=== PATIENT | female | born 1940 | race American Indian/Alaskan Native ===

== ENCOUNTER 2018-07-30 15:56 | Emergency (ER) | payer MEDICARE, OTHER ==
[2018-07-30 19:41] LABS: Hematocrit 43.9 % (30.3-42.9); Hemoglobin 14.1 gm/dl (10.1-14.3); Mean Corpuscular HGB Conc 32 % (30-34); Mean Corpuscular Volume 81 fl (79-97); Platelet Count 123 K/mm3 (140-440); Red Blood Count 5.41 M/mm3 (3.65-5.03)
--- NOTE | 2018-07-30 19:47 | Emergency Department Report ---
ED General Adult HPI - General Chief complaint: Abdominal Pain Stated complaint: ABD PAIN Time Seen by Provider: 07/30/18 19:44 Source: patient, EMS Mode of arrival: Stretcher Limitations: No Limitations - History of Present Illness Initial comments: 78-year-old female with a history of end-stage renal disease presents with the complaint of abdominal pain. Patient had abdominal pain8 out of 10 and did not have dialysis today secondary to this. Patient has had no vomiting. Patient and has had no chest pain or shortness of breath. Patient has had no fever. Patient able to have a bowel movement. Severity scale (0 -10): 8 - Related Data Previous Rx's Medication Instructions Recorded Last Taken Type Ondansetron [Zofran Odt] 4 mg PO Q8HR #20 tab.rapdis 07/30/18 Unknown Rx traMADol [Ultram] 50 mg PO Q6HR PRN #20 tablet 07/30/18 Unknown Rx Allergies Allergy/AdvReac Type Severity Reaction Status Date / Time No Known Allergies Allergy Unverified 07/30/18 17:06 ED Review of Systems ROS: Stated complaint: ABD PAIN Other details as noted in HPI Constitutional: denies: chills, fever Eyes: denies: eye pain, eye discharge, vision change ENT: denies: ear pain, throat pain Respiratory: denies: cough, shortness of breath, wheezing Cardiovascular: denies: chest pain, palpitations Endocrine: no symptoms reported Gastrointestinal: abdominal pain, nausea, vomiting Genitourinary: denies: urgency, dysuria, discharge Musculoskeletal: denies: back pain, joint swelling, arthralgia Skin: denies: rash, lesions Neurological: denies: headache, weakness, paresthesias Psychiatric: denies: anxiety, depression Hematological/Lymphatic: denies: easy bleeding, easy bruising ED Past Medical Hx - Past Medical History Previous Medical History?: Yes Hx CVA: Yes (R sided def) Hx Diabetes: Yes Hx Renal Disease: Yes (Tue, Thur, Sat) Hx Seizures: Yes - Social History Smoking Status: Never Smoker Substance Use Type: None - Medications Home Medications: Home Medications Medication Instructions Recorded Confirmed Last Taken Type Ondansetron [Zofran Odt] 4 mg PO Q8HR #20 tab.rapdis 07/30/18 Unknown Rx traMADol [Ultram] 50 mg PO Q6HR PRN #20 tablet 07/30/18 Unknown Rx ED Physical Exam - General Limitations: No Limitations General appearance: alert, other (active; awake; ) - Head Head exam: Present: atraumatic, normocephalic - Eye Eye exam: Present: normal appearance - ENT ENT exam: Present: mucous membranes moist - Neck Neck exam: Present: normal inspection - Respiratory Respiratory exam: Present: normal lung sounds bilaterally. Absent: respiratory distress - Cardiovascular Cardiovascular Exam: Present: regular rate, normal rhythm. Absent: systolic murmur, diastolic murmur, rubs, gallop - GI/Abdominal GI/Abdominal exam: Present: soft, normal bowel sounds. Absent: tenderness (no acute tenderness noted currently), guarding, rebound - Extremities Exam Extremities exam: Present: normal inspection - Back Exam Back exam: Present: normal inspection - Neurological Exam Neurological exam: Present: alert, oriented X3 - Psychiatric Psychiatric exam: Present: normal affect, normal mood - Skin Skin exam: Present: warm, dry, intact, normal color. Absent: rash ED Course Vital Signs 07/30/18 07/30/18 07/30/18 17:48 18:00 18:15 Pulse Rate 70 67 66 Respiratory 27 H 20 19 Rate Blood Pressure 179/86 210/90 Blood Pressure [Left] O2 Sat by Pulse 100 100 Oximetry 07/30/18 07/30/18 07/30/18 18:30 18:46 19:00 Pulse Rate 63 61 65 Respiratory 28 H 15 15 Rate Blood Pressure 210/90 187/81 210/90 Blood Pressure [Left] O2 Sat by Pulse 100 100 96 Oximetry 07/30/18 07/30/18 07/30/18 19:09 19:16 19:30 Pulse Rate 64 65 65 Respiratory 11 L 19 19 Rate Blood Pressure 190/86 190/86 Blood Pressure 198/87 [Left] O2 Sat by Pulse 100 99 98 Oximetry 07/30/18 07/30/18 07/30/18 19:45 20:00 20:15 Pulse Rate 60 63 62 Respiratory 15 20 19 Rate Blood Pressure 211/87 211/87 207/87 Blood Pressure [Left] O2 Sat by Pulse 94 97 95 Oximetry 07/30/18 07/30/18 07/30/18 20:30 20:46 21:00 Pulse Rate 67 76 Respiratory 12 13 Rate Blood Pressure 207/87 228/98 245/152 Blood Pressure [Left] O2 Sat by Pulse 97 99 Oximetry 07/30/18 07/30/18 07/30/18 21:16 21:30 21:42 Pulse Rate 69 74 68 Respiratory 17 20 Rate Blood Pressure 245/152 226/100 226/100 Blood Pressure [Left] O2 Sat by Pulse 100 99 Oximetry 07/30/18 07/30/18 07/30/18 21:46 22:00 22:16 Pulse Rate 75 74 70 Respiratory 10 L 12 18 Rate Blood Pressure 207/115 207/115 206/88 Blood Pressure [Left] O2 Sat by Pulse 93 98 95 Oximetry 07/30/18 07/30/18 07/30/18 22:30 22:46 22:48 Pulse Rate 66 66 68 Respiratory 18 20 16 Rate Blood Pressure 206/88 226/100 Blood Pressure 186/80 [Left] O2 Sat by Pulse 93 95 98 Oximetry 07/30/18 07/30/18 23:00 23:13 Pulse Rate 73 83 Respiratory 16 Rate Blood Pressure 226/100 Blood Pressure 168/80 [Left] O2 Sat by Pulse 98 Oximetry ED Medical Decision Making - Lab Data Result diagrams: 07/30/18 19:16 07/30/18 21:42 - Medical Decision Making Patient has had no episodes of vomiting while in the ER. Patient pain has im proved as well as her blood pressure. CT shows no acute pathology. Disposition discussed with daughter and patient to be discharged to follow up with PCP. - Differential Diagnosis Pancreatitis; Obstruction; Dehydration; Anemia Critical care attestation.: If time is entered above; I have spent that time in minutes in the direct care of this critically ill patient, excluding procedure time. ED Disposition Clinical Impression: Abdominal pain, Vomiting Disposition: DC-01 TO HOME OR SELFCARE Is pt being admited?: No Condition: Stable Instructions: Abdominal Pain (ED) Prescriptions: Ondansetron [Zofran Odt] 4 mg PO Q8HR #20 tab.rapdis traMADol [Ultram] 50 mg PO Q6HR PRN #20 tablet PRN Reason: Pain Referrals: PRIMARY CARE, [Primary Care Provider] - 3-5 Days Time of Disposition: 23:25 Print Language: IVORIAN
[2018-07-30 19:50] LABS: Red Cell Distribution Width 20.3 % (13.2-15.2)
[2018-07-30 20:57] LABS: Anisocytosis 1+; Basophils % (Manual) 0 % (0.0-1.8); Total Cells Counted 100
[2018-07-30 20:58] LABS: Crenated RBC 1+; Platelet Estimate Consistent w Auto
[2018-07-30] MEDS ORDERED: NORMODYNE IV ONE (21:33)
--- NOTE | 2018-07-30 21:37 | Cat Scan Report ---
FINAL REPORT EXAM: CT ABDOMEN PELVIS WO CON HISTORY: abdominal pain TECHNIQUE: CT abdomen and pelvis without contrast PRIORS: None. FINDINGS: No acute abnormality identified in the lung bases. No focal abnormality identified within the liver parenchyma. The spleen demonstrates normal size and attenuation. No pancreatic abnormalities seen. Kidneys demonstrate no evidence of hydronephrosis or nephrolithiasis. No ureteral calculus identified . The adrenal glands are unremarkable. Abdominal aorta is normal in caliber. Note is made of an IVC filter in the infrarenal IVC. No pathologically enlarged lymph nodes are identified. No signs of free fluid or free air No evidence of small bowel dilatation. Multiple diverticula are noted descending and sigmoid colon no evidence for acute diverticulitis Urinary bladder is unremarkable. IMPRESSION: IVC filter noted Colonic diverticula without evidence for acute diverticulitis
[2018-07-30 22:22] LABS: Albumin 2.7 g/dL (3.9-5); Calcium 7.2 mg/dL (8.4-10.2)
[2018-07-30 23:14] VITALS: BP 168/80
== END 2018-07-30 23:44 | disposition home or self-care (01) ==
LOC: ED 15:56
DX: R10.9 Unspecified abdominal pain (principal); R11.10 Vomiting, unspecified; E11.22 Type 2 diabetes mellitus with diabetic chronic kidney disease; N18.6 End stage renal disease; Z99.2 Dependence on renal dialysis; Z86.73 Personal history of transient ischemic attack (TIA), and cerebral infarction without residual deficits
CPT/HCPCS: 36415; 74176; 80053; 83690; 85007; 85025; 96374

== ENCOUNTER 2018-08-20 12:54 | Inpatient (IN) | payer MEDICARE ==
--- NOTE | 2018-08-20 13:42 | Emergency Department Report ---
ED Altered Mental Status HPI - General Chief Complaint: Altered Mental Status Stated Complaint: SEIZURES Time Seen by Provider: 08/20/18 13:29 Source: EMS Mode of arrival: Stretcher Limitations: Altered Mental Status, Physical Limitation - History of Present Illness Initial Comments: 78-year-old female with a past medical history of end-stage renal disease Friday, , and Friday, diabetes, seizures, previous CVA with right- sided deficit presents to the hospital unresponsive during dialysis. Symptoms occurred 30 minutes into dialysis and therefore dialysis was discontinued and patient was sent to the ER. The patient has a history of seizures (on Keppra) however no seizure or shaking activity was reported by the dialysis center. Patient is alert oriented to place and self. She is difficult to understand when quoting her name. She is not speaking or reliably following commands. She states only that she does not feel good but is unable to characterize further. She tearful during examination but denies pain. 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 - Related Data Previous Rx's Medication Instructions Recorded Last Taken Type Ondansetron [Zofran Odt] 4 mg PO Q8HR #20 tab.rapdis 07/30/18 Unknown Rx traMADol [Ultram] 50 mg PO Q6HR PRN #20 tablet 07/30/18 Unknown Rx Allergies Allergy/AdvReac Type Severity Reaction Status Date / Time No Known Allergies Allergy Unverified 07/30/18 17:06 ED Review of Systems ROS: Stated complaint: SEIZURES Other details as noted in HPI ED Past Medical Hx - Past Medical History Previous Medical History?: Yes Hx CVA: Yes (R sided def) Hx Diabetes: Yes Hx Renal Disease: Yes (Fri, , Fri) Hx Seizures: Yes - Social History Smoking Status: Never Smoker Substance Use Type: None - Medications Home Medications: Home Medications Medication Instructions Recorded Confirmed Last Taken Type Ondansetron [Zofran Odt] 4 mg PO Q8HR #20 tab.rapdis 07/30/18 Unknown Rx traMADol [Ultram] 50 mg PO Q6HR PRN #20 tablet 07/30/18 Unknown Rx ED Physical Exam - General Limitations: Altered Mental Status, Physical Limitation ED Course Vital Signs 08/20/18 08/20/18 08/20/18 13:16 15:04 15:16 Temperature 97.7 F Pulse Rate 78 70 67 Respiratory 18 19 15 Rate Blood Pressure 133/79 O2 Sat by Pulse 99 98 99 Oximetry 08/20/18 08/20/18 08/20/18 15:30 15:46 16:00 Temperature Pulse Rate 68 69 68 Respiratory 17 18 16 Rate Blood Pressure 151/65 147/64 148/68 O2 Sat by Pulse 98 98 99 Oximetry - Reevaluation(s) Reevaluation #1: 08/20/18 17:38 pt is closer to baseline mental status. - Lab Data Result diagrams: 08/20/18 13:42 08/20/18 13:42 Lab Results 08/20/18 08/20/18 08/20/18 Range/Units 13:42 13:42 13:42 WBC 6.4 (4.5-11.0) K/mm3 RBC 4.60 (3.65-5.03) M/mm3 Hgb 12.0 (10.1-14.3) gm/dl Hct 38.3 (30.3-42.9) % MCV 83 (79-97) fl MCH 26 L (28-32) pg MCHC 31 (30-34) % RDW 17.7 H (13.2-15.2) % Plt Count 140 (140-440) K/mm3 Lymph % (Auto) 19.2 (13.4-35.0) % [place] % (Auto) 5.9 (0.0-7.3) % Eos % (Auto) 1.7 (0.0-4.3) % Baso % (Auto) 0.6 (0.0-1.8) % Lymph # 1.2 (1.2-5.4) K/mm3 Potter # 0.4 (0.0-0.8) K/mm3 Eos # 0.1 (0.0-0.4) K/mm3 Baso # 0.0 (0.0-0.1) K/mm3 Seg Neutrophils % 72.6 H (40.0-70.0) % Seg Neutrophils # 4.7 (1.8-7.7) K/mm3 PT (12.2-14.9) Sec. INR (0.87-1.13) APTT (24.2-36.6) Sec. Sodium 131 L (137-145) mmol/L Potassium 4.1 (3.6-5.0) mmol/L Chloride 93.9 L (98-107) mmol/L Carbon Dioxide 25 (22-30) mmol/L Anion Gap 16 mmol/L BUN 29 H (7-17) mg/dL Creatinine 4.0 H (0.7-1.2) mg/dL Estimated GFR 13 ml/min BUN/Creatinine Ratio 7 % Glucose 248 H (65-100) mg/dL Calcium 8.6 (8.4-10.2) mg/dL Total Bilirubin 0.40 (0.1-1.2) mg/dL AST 20 (5-40) units/L ALT 7 (7-56) units/L Alkaline Phosphatase 166 H (35-129) units/L Troponin T (0.00-0.029) ng/mL Total Protein 6.9 (6.3-8.2) g/dL Albumin 2.9 L (3.9-5) g/dL Albumin/Globulin Ratio 0.7 % Triglycerides (2-149) mg/dL Cholesterol (50-199) mg/dL LDL Cholesterol Direct (50-130) mg/dL HDL Cholesterol (40-59) mg/dL Cholesterol/HDL Ratio % TSH (0.270-4.200) mlU/mL Free T4 (0.76-1.46) ng/dL Urine Color (Yellow) Urine Turbidity (Clear) Urine pH (5.0-7.0) Ur Specific [place] (1.003-1.030) Urine Protein (Negative) mg/dL Urine Glucose (UA) (Negative) mg/dL Urine Ketones (Negative) mg/dL Urine Blood (Negative) Urine Nitrite (Negative) Urine Bilirubin (Negative) Urine Urobilinogen (<2.0) mg/dL Ur Leukocyte Esterase (Negative) Urine WBC (Auto) (0.0-6.0) /HPF Urine RBC (Auto) (0.0-6.0) /HPF U Epithel Cells (Auto) (0-13.0) /HPF Ur Transition Epith Cell /HPF Urine Mucus /HPF Plasma/Serum Alcohol < 0.01 (0-0.07) % 08/20/18 08/20/18 08/20/18 Range/Units 13:42 13:42 13:42 WBC (4.5-11.0) K/mm3 RBC (3.65-5.03) M/mm3 Hgb (10.1-14.3) gm/dl Hct (30.3-42.9) % MCV (79-97) fl MCH (28-32) pg MCHC (30-34) % RDW (13.2-15.2) % Plt Count (140-440) K/mm3 Lymph % (Auto) (13.4-35.0) % Potter % (Auto) (0.0-7.3) % Eos % (Auto) (0.0-4.3) % Baso % (Auto) (0.0-1.8) % Lymph # (1.2-5.4) K/mm3 Potter # (0.0-0.8) K/mm3 Eos # (0.0-0.4) K/mm3 Baso # (0.0-0.1) K/mm3 Seg Neutrophils % (40.0-70.0) % Seg Neutrophils # (1.8-7.7) K/mm3 PT 17.0 H (12.2-14.9) Sec. INR 1.30 H (0.87-1.13) APTT 148.3 H* (24.2-36.6) Sec. Sodium (137-145) mmol/L Potassium (3.6-5.0) mmol/L Chloride (98-107) mmol/L Carbon Dioxide (22-30) mmol/L Anion Gap mmol/L BUN (7-17) mg/dL Creatinine (0.7-1.2) mg/dL Estimated GFR ml/min BUN/Creatinine Ratio % Glucose (65-100) mg/dL Calcium (8.4-10.2) mg/dL Total Bilirubin (0.1-1.2) mg/dL AST (5-40) units/L ALT (7-56) units/L Alkaline Phosphatase (35-129) units/L Troponin T 0.044 H (0.00-0.029) ng/mL Total Protein (6.3-8.2) g/dL Albumin (3.9-5) g/dL Albumin/Globulin Ratio % Triglycerides 108 (2-149) mg/dL Cholesterol 228 H (50-199) mg/dL LDL Cholesterol Direct 145 H (50-130) mg/dL HDL Cholesterol 76 H (40-59) mg/dL Cholesterol/HDL Ratio 3.00 % TSH 2.930 (0.270-4.200) mlU/mL Free T4 1.31 (0.76-1.46) ng/dL Urine Color (Yellow) Urine Turbidity (Clear) Urine pH (5.0-7.0) Ur Specific [place] (1.003-1.030) Urine Protein (Negative) mg/dL Urine Glucose (UA) (Negative) mg/dL Urine Ketones (Negative) mg/dL Urine Blood (Negative) Urine Nitrite (Negative) Urine Bilirubin (Negative) Urine Urobilinogen (<2.0) mg/dL Ur Leukocyte Esterase (Negative) Urine WBC (Auto) (0.0-6.0) /HPF Urine RBC (Auto) (0.0-6.0) /HPF U Epithel Cells (Auto) (0-13.0) /HPF Ur Transition Epith Cell /HPF Urine Mucus /HPF Plasma/Serum Alcohol (0-0.07) % 08/20/18 08/20/18 Range/Units 16:06 17:08 WBC (4.5-11.0) K/mm3 RBC (3.65-5.03) M/mm3 Hgb (10.1-14.3) gm/dl Hct (30.3-42.9) % MCV (79-97) fl MCH (28-32) pg MCHC (30-34) % RDW (13.2-15.2) % Plt Count (140-440) K/mm3 Lymph % (Auto) (13.4-35.0) % Potter % (Auto) (0.0-7.3) % Eos % (Auto) (0.0-4.3) % Baso % (Auto) (0.0-1.8) % Lymph # (1.2-5.4) K/mm3 Potter # (0.0-0.8) K/mm3 Eos # (0.0-0.4) K/mm3 Baso # (0.0-0.1) K/mm3 Seg Neutrophils % (40.0-70.0) % Seg Neutrophils # (1.8-7.7) K/mm3 PT (12.2-14.9) Sec. INR (0.87-1.13) APTT (24.2-36.6) Sec. Sodium (137-145) mmol/L Potassium (3.6-5.0) mmol/L Chloride (98-107) mmol/L Carbon Dioxide (22-30) mmol/L Anion Gap mmol/L BUN (7-17) mg/dL Creatinine (0.7-1.2) mg/dL Estimated GFR ml/min BUN/Creatinine Ratio % Glucose (65-100) mg/dL Calcium (8.4-10.2) mg/dL Total Bilirubin (0.1-1.2) mg/dL AST (5-40) units/L ALT (7-56) units/L Alkaline Phosphatase (35-129) units/L Troponin T 0.032 H D (0.00-0.029) ng/mL Total Protein (6.3-8.2) g/dL Albumin (3.9-5) g/dL Albumin/Globulin Ratio % Triglycerides (2-149) mg/dL Cholesterol (50-199) mg/dL LDL Cholesterol Direct (50-130) mg/dL HDL Cholesterol (40-59) mg/dL Cholesterol/HDL Ratio % TSH (0.270-4.200) mlU/mL Free T4 (0.76-1.46) ng/dL Urine Color [place] (Yellow) Urine Turbidity Cloudy (Clear) Urine pH 6.0 (5.0-7.0) Ur Specific [place] 1.017 (1.003-1.030) Urine Protein >500 (Negative) mg/dL Urine Glucose (UA) 150 (Negative) mg/dL Urine Ketones Tr (Negative) mg/dL Urine Blood Mod (Negative) Urine Nitrite Neg (Negative) Urine Bilirubin Neg (Negative) Urine Urobilinogen < 2.0 (<2.0) mg/dL Ur Leukocyte Esterase Lg (Negative) Urine WBC (Auto) 65.0 H (0.0-6.0) /HPF Urine RBC (Auto) 38.0 (0.0-6.0) /HPF U Epithel Cells (Auto) 3.0 (0-13.0) /HPF Ur Transition Epith Cell 1 /HPF Urine Mucus Few /HPF Plasma/Serum Alcohol (0-0.07) % - EKG Data -: EKG Interpreted by [facility] EKG shows normal: sinus rhythm, axis (qrs -43), QRS complexes (qrsd 88) Rate: normal (69) - Radiology Data Radiology results: report reviewed PROCEDURE: CT HEAD/BRAIN WO CON TECHNIQUE: Computerized tomography of the head was performed without contrast material. Imaging was obtained in axial increments. CT DOSE LENGTH PRODUCT: 1048.6 mGycm HISTORY: unresponsive episode COMPARISONS: None . FINDINGS: The ventricular system is prominent in size and normal in configuration. Findings suggest central atrophy. Low density in the periventricular white matter bilaterally is consistent with small vessel ischemic changes. There is no evidence for mass lesion, mass effect, midline shift, acute intracranial hemorrhage, or acute ischemia/ infarction. No evidence for acute skull fracture is seen. Postsurgical changes over the left parietal bone is noted. No abnormality in the overlying scalp soft tissues is seen. Visualized paranasal sinuses are clear. IMPRESSION: No acute intracranial process noted. Postsurgical changes of the left parietal region. Atrophy and small vessel ischemic changes noted. - Medical Decision Making Patient's transient alteration in mental status without a witnessed seizure to be admitted to the hospital for further treatment and observation. She did not get complete her dialysis but no signs of volume overload hyperkalemia at this time. Patient has mild elevation in troponin was stable and likely caused by chronic renal failure rocephin for uti - Differential Diagnosis seizure, encephalopathy, TIA Critical Care Time: No Critical care attestation.: If time is entered above; I have spent that time in minutes in the direct care of this critically ill patient, excluding procedure time. ED Disposition Clinical Impression: Mental status alteration, ESRD (end stage renal disease) on dialysis, HTN (hypertension), UTI (urinary tract infection) Disposition: OP ADMIT IP TO THIS HOSP Is pt being admited?: Yes Condition: Stable Time of Disposition: 17:44 (Dr mims/hosp)
[2018-08-20 14:22] LABS: Albumin 2.9 g/dL (3.9-5); Calcium 8.6 mg/dL (8.4-10.2)
[2018-08-20 14:23] LABS: INR 1.3 (0.87-1.13)
[2018-08-20 14:34] LABS: Basophils % (Auto) 0.6 % (0.0-1.8); Eosinophils # (Auto) 0.1 K/mm3 (0.0-0.4); Eosinophils % (Auto) 1.7 % (0.0-4.3); Hematocrit 38.3 % (30.3-42.9); Lymphocytes # (Auto) 1.2 K/mm3 (1.2-5.4); Lymphocytes % (Auto) 19.2 % (13.4-35.0); Mean Corpuscular HGB Conc 31 % (30-34); Mean Corpuscular Volume 83 fl (79-97); Monocytes # (Auto) 0.4 K/mm3 (0.0-0.8); Monocytes % (Auto) 5.9 % (0.0-7.3); Platelet Count 140 K/mm3 (140-440); Red Cell Distribution Width 17.7 % (13.2-15.2)
[2018-08-20 14:40] LABS: Free T4 (Free Thyroxine) 1.31 ng/dL (0.76-1.46); Partial Thromboplastin Time 148.3 Sec. (24.2-36.6)
--- NOTE | 2018-08-20 15:56 | Cat Scan Report ---
PROCEDURE: CT HEAD/BRAIN WO CON TECHNIQUE: Computerized tomography of the head was performed without contrast material. Imaging was obtained in axial increments. CT DOSE LENGTH PRODUCT: 1048.6 mGycm HISTORY: unresponsive episode COMPARISONS: None . FINDINGS: The ventricular system is prominent in size and normal in configuration. Findings suggest central atr ophy. Low density in the periventricular white matter bilaterally is consistent with small vessel isc hemic changes. There is no evidence for mass lesion, mass effect, midline shift, acute intracranial hemorrhage, or a cute ischemia/ infarction. No evidence for acute skull fracture is seen. Postsurgical changes over the left parietal bone is not ed. No abnormality in the overlying scalp soft tissues is seen. Visualized paranasal sinuses are clear. IMPRESSION: No acute intracranial process noted. Postsurgical changes of the left parietal region. Atrophy and sm all vessel ischemic changes noted. This document is electronically signed by Mariela Blair MD., August 20 2018 03:54:05 PM ET
[2018-08-20 17:40] LABS: Bilirubin,Urine NEG (Negative); Blood,Urine MOD (Negative); Color,Urine Amber (Yellow); Mucus,Urine FEW /HPF; Urobilinogen,Urine < 2.0 mg/dL (<2.0)
[2018-08-20 17:42] LABS: Protein,Urine >500 mg/dL (Negative)
--- NOTE | 2018-08-20 18:01 | XRay Report ---
PROCEDURE: XR CHEST 1V AP TECHNIQUE: Frontal portable view of the chest HISTORY: dialysis, ams COMPARISONS: None FINDINGS: There is no evidence of focal infiltrate, pneumothorax or pleural fluid collection. The cardiac silhouette appears to be enlarged with dual lead AICD. The thoracic aorta is tortuous. There is a right double-lumen central venous catheter with the tip projected in the region of the rig ht atrium. The bony structures are unremarkable. An IVC filter is demonstrated. IMPRESSION: 1. No evidence of an acute pulmonary process. 2. Enlarged cardiac silhouette with AICD. 3. Double-lumen central venous catheter. 4. IVC filter. This document is electronically signed by Miriam Lozano MD., August 20 2018 05:59:17 PM ET
[2018-08-20] MEDS ORDERED: ROCEPHIN/NS 1 GM/50 ML 1 GM/50 ML BAG IV ONE ×2 (18:10→18:48)
[2018-08-20] MEDS ORDERED: ZOFRAN IV PRN (23:05)
[2018-08-20] MEDS ORDERED: TYLENOL PO PRN (23:05)
[2018-08-20] MEDS ORDERED: D50W (25GM) Syringe IV PRN (23:09)
[2018-08-20] MEDS ORDERED: MORPHINE IV PRN (23:11)
[2018-08-21] MEDS: HEPARIN SUB-Q SCH ×3 (00:08→21:52)
[2018-08-21] MEDS: HumuLIN R SUB-Q SCH ×4 (08:10→22:39)
--- NOTE | 2018-08-21 08:18 | History and Physical Report ---
CHIEF COMPLAINT: Altered mental status. Other complaints include abdominal pain. HISTORY OF PRESENT ILLNESS: The patient is a 78-year-old female with past medical history of end-stage renal disease on dialysis on Tuesdays, , and Saturdays, presenting with altered mental status. Also, the patient was complaining about abdominal pain. There was no history of fever or chills. No history of nausea and vomiting and the patient was found to be less responsive during dialysis and was brought in for evaluation. Symptoms were noted to have occured during dialysis and that is way his dialysis was discontinued. There was no history of chest pain, no history of shortness of breath, cough, fever or chills. PAST MEDICAL HISTORY: Pertinent for end-stage renal disease, on dialysis, cerebrovascular accident with right-sided weakness, diabetes mellitus, seizure disorder. PAST SURGICAL HISTORY: Unremarkable. FAMILY HISTORY: Family history is noncontributory. SOCIAL HISTORY: The patient does not smoke, does not drink alcohol and does not use illicit drugs. MEDICATIONS: The patient is on Zofran sublingual 4 mg every 8 hours for nausea and vomiting, Ultram 50 mg by mouth every 6 hours as needed for nausea and vomiting. ALLERGIES: There are no known drug allergies. REVIEW OF SYSTEMS: CONSTITUTIONAL: There is no fever, no chills, no diaphoresis. HEENT: There is no headache or sore throat. CARDIOVASCULAR SYSTEM: There is no chest pain or orthopnea. RESPIRATORY SYSTEM: There is no shortness of breath or cough. GASTROINTESTINAL SYSTEM: Abdominal pain noted. No nausea, no vomiting, no diarrhea or constipation. NEUROLOGICAL SYSTEM: Altered mental status noted. No dizziness. MUSCULOSKELETAL SYSTEM: There is no joint pain or swelling. DERMATOLOGICAL SYSTEM: There is no skin rash or itching. GENITOURINARY SYSTEM: There is dysuria, but no hematuria or flank pain. Rest of system review is normal. PHYSICAL EXAMINATION: GENERAL: At the time of exam, the patient was found to be alert, oriented x 3, in mild to moderate disease due to abdominal pain. VITAL SIGNS: Shows normal temperature of 97.7 degrees Fahrenheit, pulse of 78, respirations 18, blood pressure 133/79, O2 sat of 99% on room air. HEENT: Show pupils to be equal, round, reactive to light and accommodating. Extraocular muscles are intact. NECK: Supple with no JVD or carotid bruit. CARDIOVASCULAR SYSTEM: Show normal first and second heart sounds with no gallops or murmurs. RESPIRATORY SYSTEM: Show good air entry on both sides of the lung with no abnormal breath sounds. GASTROINTESTINAL SYSTEM: Show abdomen to be full, soft, nontender with no organomegaly or rigidity. NEUROLOGICAL: Shows no focal deficit. MUSCULOSKELETAL SYSTEM: Show no joint swelling or tenderness. DERMATOLOGICAL SYSTEM: Show no skin rash. GENITOURINARY SYSTEM: Showing no costovertebral angle tenderness. PERTINENT LABORATORY DATA AND IMAGING STUDIES: The patient has CT of the head without contrast done that shows no acute intracranial process. There is finding of post surgical changes of the left parietal region. There is also finding of atrophy and small vessel ischemic changes on CT of the head. The patient also had chest x-ray done that shows no evidence of acute pulmonary process. There is finding of enlarged cardiac silhouette with an AICD in place and double lumen central venous catheter was in place, also the patient has IVC filter in place. Lab results, the patient has CBC done with normal white count, normal hemoglobin and normal hematocrit with CBC differential showing a slight increase in segmented neutrophil count of 72.6%. The patient's coagulation studies show a slightly elevated PT of 17 with slightly elevated INR of 1.3 and high PTT of 148.3. The patient's chemistry show low sodium of 131, normal potassium, low chloride of 93.9 with elevated BUN of 29 and elevated creatinine of 4 consistent with end-stage renal disease, on dialysis. The patient's glucose level was high with a value of 248 and troponin level was high with a value of 0.044. The patient's albumin level came back low with a value of 2.9. The patient's lipid panel show high cholesterol of 228 with high LDL of 145 and also high HDL of 76. The patient's urinalysis show elevated urine wbc's of 65 with light urine wbc's and negative urine nitrite and high urine wbc's of 38. DIAGNOSES: 1. Altered mental status. 2. End-stage renal disease, on dialysis. 3. Urinary tract infection. 4. Abdominal pain. PLAN OF CARE: 1. The patient will be admitted to medical floor, on remote telemetry. 2. The patient will be on Accu-Chek a.c. and at bedtime followed by low dose sliding scale using regular insulin coverage. 3. The patient will have Neurology consult with Dr. Dread Hurt for end-stage renal disease management. 4. The patient's diet will be consistent carbohydrate, low sodium diet. 5. The patient will be on p.r.n. medications like Tylenol 650 mg by mouth every 4 hours for fever and headache and IV Zofran 4 mg every 8 hours for nausea and vomiting. 6. The patient will be on IV ceftriaxone 1 gram daily for treatment of UTI and will be on heparin 5000 units subcutaneous q. 12 hours for DVT prophylaxis. 7. The patient will be on home medications as shown in the medication reconciliation section. 8. The patient will also be on IV morphine 2 mg every 4 hours as needed for abdominal pain. JOB# [id number] [facility]/GAMALIEL LEVINE
--- NOTE | 2018-08-21 08:34 | Progress Note ---
Assessment and Plan Assessment and plan: 78-year-old woman who has a history of end-stage renal disease on dialysis Friday schedule, diabetes, seizures, previous CVA with right- sided deficits, status post AICD and IVC filter She presents with nonresponsiveness during dialysis, symptoms occurred 30 minutes into her treatments as though she was sent to the ER. Apparently there was no evidence of convulsion, no shaking movements, no loss of bowel function, upon arrival in the ER the patient was awake alert and verbal, she was tearful because she did not remember what happened. Past medical history also includes history of DVT and possible PE, status post IVC filter CT head postsurgical changes in the left parietal region seen, no other acute changes CXR; no acute processs Diagnosis end stage renal disease hypotension during HD transient autonomic imbalance Acute metabolic encephalopathy Hypotension Coagulopathy UTI DM Dementia sp fall this am, hit her head Plan cont HD per renal monitor mental status, non focal exam, concerned that she may have had Low BP during HD, as her BP is low this am dc amlodipine fup urine cx, cont abx optimize insulins sp fall this am, hit her head, obtain CT head, chemical and mechanical restraints as needed dvt ppx- anticoagulated History Interval history: RN reports a fall this am, she is confused and keeps getting out of bed, she fell and hit her head Review of systems Constitutional: No fevers, no malaise, no joint pains CVS: No chest pain, no orthopnea, no dyspnea on exertion, no pedal edema GI: No abdominal pain, no diarrhea, no vomiting, no constipation Respiratory: No shortness of breath, no wheezing, no coughing Hospitalist Physical - Physical exam Narrative exam: General.: Appears well, no distress, nontoxic HEENT: Moist mucous membranes, extraocular muscles intact, no lymphadenopathy Neck: supple Cardiac: S1-S2 heard Lungs: clear to auscultation bilaterally Abdomen: soft , nontender, nondistended, bowel sounds positive Extremities: no edema clubbing or cyanosis Skin: no rash or lesions Neurologic: no gross focal deficits, confused Psych: pleasantly demented - Constitutional Vitals: Temp Pulse Resp BP Pulse Ox 97.3 F L 78 18 91/52 100 08/21/18 02:23 08/21/18 02:23 08/21/18 02:23 08/21/18 02:23 08/21/18 02:23 Results - Labs CBC & Chem 7: 08/20/18 13:42 08/20/18 13:42 Labs: Laboratory Last Values WBC 6.4 K/mm3 (4.5-11.0) 08/20/18 13:42 RBC 4.60 M/mm3 (3.65-5.03) 08/20/18 13:42 Hgb 12.0 gm/dl (10.1-14.3) 08/20/18 13:42 Hct 38.3 % (30.3-42.9) 08/20/18 13:42 MCV 83 fl (79-97) 08/20/18 13:42 MCH 26 pg (28-32) L 08/20/18 13:42 MCHC 31 % (30-34) 08/20/18 13:42 RDW 17.7 % (13.2-15.2) H 08/20/18 13:42 Plt Count 140 K/mm3 (140-440) 08/20/18 13:42 Lymph % (Auto) 19.2 % (13.4-35.0) 08/20/18 13:42 Frio % (Auto) 5.9 % (0.0-7.3) 08/20/18 13:42 Eos % (Auto) 1.7 % (0.0-4.3) 08/20/18 13:42 Baso % (Auto) 0.6 % (0.0-1.8) 08/20/18 13:42 Lymph # 1.2 K/mm3 (1.2-5.4) 08/20/18 13:42 Frio # 0.4 K/mm3 (0.0-0.8) 08/20/18 13:42 Eos # 0.1 K/mm3 (0.0-0.4) 08/20/18 13:42 Baso # 0.0 K/mm3 (0.0-0.1) 08/20/18 13:42 Seg Neutrophils % 72.6 % (40.0-70.0) H 08/20/18 13:42 Seg Neutrophils # 4.7 K/mm3 (1.8-7.7) 08/20/18 13:42 PT 17.0 Sec. (12.2-14.9) H 08/20/18 13:42 INR 1.30 (0.87-1.13) H 08/20/18 13:42 APTT 148.3 Sec. (24.2-36.6) H* 08/20/18 13:42 Sodium 131 mmol/L (137-145) L 08/20/18 13:42 Potassium 4.1 mmol/L (3.6-5.0) 08/20/18 13:42 Chloride 93.9 mmol/L (98-107) L 08/20/18 13:42 Carbon Dioxide 25 mmol/L (22-30) 08/20/18 13:42 Anion Gap 16 mmol/L 08/20/18 13:42 BUN 29 mg/dL (7-17) H 08/20/18 13:42 Creatinine 4.0 mg/dL (0.7-1.2) H 08/20/18 13:42 Estimated GFR 13 ml/min 08/20/18 13:42 BUN/Creatinine Ratio 7 % 08/20/18 13:42 Glucose 248 mg/dL (65-100) H 08/20/18 13:42 POC Glucose 107 (70-105) H 08/21/18 08:09 Calcium 8.6 mg/dL (8.4-10.2) 08/20/18 13:42 Total Bilirubin 0.40 mg/dL (0.1-1.2) 08/20/18 13:42 AST 20 units/L (5-40) 08/20/18 13:42 ALT 7 units/L (7-56) 08/20/18 13:42 Alkaline Phosphatase 166 units/L (35-129) H 08/20/18 13:42 Troponin T 0.038 ng/mL (0.00-0.029) H 08/20/18 19:59 Total Protein 6.9 g/dL (6.3-8.2) 08/20/18 13:42 Albumin 2.9 g/dL (3.9-5) L 08/20/18 13:42 Albumin/Globulin Ratio 0.7 % 08/20/18 13:42 Triglycerides 108 mg/dL (2-149) 08/20/18 13:42 Cholesterol 228 mg/dL (50-199) H 08/20/18 13:42 LDL Cholesterol Direct 145 mg/dL (50-130) H 08/20/18 13:42 HDL Cholesterol 76 mg/dL (40-59) H 08/20/18 13:42 Cholesterol/HDL Ratio 3.00 % 08/20/18 13:42 TSH 2.930 mlU/mL (0.270-4.200) 08/20/18 13:42 Free T4 1.31 ng/dL (0.76-1.46) 08/20/18 13:42 Urine Color [place] (Yellow) 08/20/18 17:08 Urine Turbidity Cloudy (Clear) 08/20/18 17:08 Urine pH 6.0 (5.0-7.0) 08/20/18 17:08 Ur Specific [place] 1.017 (1.003-1.030) 08/20/18 17:08 Urine Protein >500 mg/dL (Negative) 08/20/18 17:08 Urine Glucose (UA) 150 mg/dL (Negative) 08/20/18 17:08 Urine Ketones Tr mg/dL (Negative) 08/20/18 17:08 Urine Blood Mod (Negative) 08/20/18 17:08 Urine Nitrite Neg (Negative) 08/20/18 17:08 Urine Bilirubin Neg (Negative) 08/20/18 17:08 Urine Urobilinogen < 2.0 mg/dL (<2.0) 08/20/18 17:08 Ur Leukocyte Esterase Lg (Negative) 08/20/18 17:08 Urine WBC (Auto) 65.0 /HPF (0.0-6.0) H 08/20/18 17:08 Urine RBC (Auto) 38.0 /HPF (0.0-6.0) 08/20/18 17:08 U Epithel Cells (Auto) 3.0 /HPF (0-13.0) 08/20/18 17:08 Ur Transition Epith Cell 1 /HPF 08/20/18 17:08 Urine Mucus Few /HPF 08/20/18 17:08 Plasma/Serum Alcohol < 0.01 % (0-0.07) 08/20/18 13:42
[2018-08-21] MEDS: PHOSLO PO SCH ×3 (08:59→18:04)
[2018-08-21] MEDS: KEPPRA PO SCH ×2 (08:59→21:01)
[2018-08-21] MEDS: CYMBALTA PO SCH (08:59)
[2018-08-21] MEDS: PROTONIX PO SCH (09:00)
[2018-08-21] MEDS: LOPRESSOR PO SCH (09:01)
[2018-08-21] MEDS: ROCEPHIN/NS 1 GM/50 ML 1 GM/50 ML BAG IV SCH (09:10)
[2018-08-21] MEDS ORDERED: NORVASC PO SCH (10:00)
[2018-08-21] MEDS ORDERED: HALDOL PO PRN (10:50)
--- NOTE | 2018-08-21 15:03 | Cat Scan Report ---
CT HEAD WITHOUT CONTRAST INDICATION: Status post fall. Hit head. COMPARISON: Yesterday's head CT. FINDINGS: Noncontrast head CT demonstrates new high posterior scalp swelling/approximately 2-3 cm hematoma as on axial image 53, series 2, amongst others. Intact underlying calvarium with stable left frontotemporal old craniotomy changes. Benign bilateral basal ganglia calcifications, age-appropriate ventricles and sulci and moderate periventricular white matter hypodense small vessel ischemic disease again noted without definite acute infarct, mass effect or midline shift. Normal posterior fossa with preserved basilar cisterns. Normal imaged eye globes. Clear visualized paranasal sinuses and mastoid air cells. Atherosclerotic ICA and vertebral artery calcifications again noted. CONCLUSION: High posterior scalp swelling/hematoma, new since yesterday. Otherwise stable. Thank you for the opportunity to participate in this patient's care.
[2018-08-22] MEDS: LOPRESSOR PO SCH ×2 (06:05→14:36)
[2018-08-22] MEDS ORDERED: HEPARIN 10,000 UNITS/10 ML IV PRN (07:44)
[2018-08-22] MEDS ORDERED: ALBURX 25% (ALBUMIN) IV PRN (07:44)
[2018-08-22] MEDS ORDERED: NACL 0.9% 100 ML IV PRN ×2 (07:44→11:54)
--- NOTE | 2018-08-22 09:40 | Consultation ---
History of Present Illness - Reason for Consult Consult date: 08/22/18 end stage renal disease Requesting physician: BEAN ARIAS - History of Present Illness 78-year-old lady with end-stage renal disease on hemodialysis on Friday schedule. She also has a history of cerebrovascular accident with seizure disorder. Recently moved from [place] to [place] to be with her daughter. She is under our care at [facility] dialysis clinic. Patient was brought to the hospital via EMS following unresponsiveness during dialysis. She was 30 mins into the treatment when she became unresponsive. No convulsive movements noted by the staff Past History Past Medical History: diabetes, DVT, ESRD, seizures, stroke Past Surgical History: Other (automated implantable cardioverter defibrillator, IVC filter placement) Social history: no significant social history, other (unable to obtain due to patient's mental status) Family history: other Medications and Allergies Allergies Allergy/AdvReac Type Severity Reaction Status Date / Time No Known Allergies Allergy Unverified 07/30/18 17:06 Home Medications Medication Instructions Recorded Confirmed Last Taken Type AtorvaSTATin [Lipitor] 10 mg PO QHS 08/20/18 08/20/18 Unknown History Calcium Acetate [Phoslo] 667 mg PO TID 08/20/18 08/20/18 Unknown History DULoxetine [Cymbalta] 30 mg PO DAILY 08/20/18 08/20/18 Unknown History Metoprolol Tartrate 25 mg PO DAILY 08/20/18 08/20/18 Unknown History Pantoprazole [Protonix] 40 mg PO DAILY 08/20/18 08/20/18 Unknown History amLODIPine [Norvasc] 5 mg PO BID 08/20/18 08/20/18 Unknown History levETIRAcetam [Keppra] 250 mg PO BID 08/20/18 08/20/18 Unknown History Active Meds: Active Medications Acetaminophen (Tylenol) 650 mg PO Q4H PRN PRN Reason: Fever >101 Last Admin: 08/21/18 09:18 Dose: 650 mg Documented by: Albumin Human (Alburx 25% (Albumin)) 25 gm IV MATHEW PRN PRN Reason: Hypotension Atorvastatin Calcium (Lipitor) 10 mg PO QHS [facility] Last Admin: 08/21/18 21:01 Dose: 10 mg Documented by: Calcium Acetate (Phoslo) 667 mg PO TIDWM [facility] Last Admin: 08/21/18 18:04 Dose: 667 mg Documented by: Dextrose (D50w (25gm) Syringe) 50 ml IV PRN PRN PRN Reason: Hypoglycemia Duloxetine HCl (Cymbalta) 30 mg PO DAILY [facility] Last Admin: 08/21/18 08:59 Dose: 30 mg Documented by: Haloperidol (Haldol) 0.5 mg PO Q6H PRN PRN Reason: Agitation Heparin Sodium (Porcine) (Heparin) 5,000 unit SUB-Q Q12HR [facility] Last Admin: 08/21/18 21:52 Dose: Not Given Documented by: Heparin Sodium (Porcine) (Heparin 10,000 Units/10 Ml) 1,000 unit IV MATHEW PRN PRN Reason: hemodialysis Ceftriaxone Sodium (Rocephin/Ns 1 Gm/50 Ml) 1 gm in 50 mls @ 100 mls/hr IV Q24HR [facility]; Protocol Last Admin: 08/21/18 09:10 Dose: 100 mls/hr Documented by: Sodium Chloride (Nacl 0.9%) 100 mls @ 999 mls/hr IV MATHEW PRN PRN Reason: Hypotension Insulin Human Regular (Humulin R) 0 units SUB-Q AC [facility]; Protocol Last Admin: 08/21/18 16:50 Dose: Not Given Documented by: Insulin Human Regular (Humulin R) 0 units SUB-Q QHS [facility]; Protocol Last Admin: 08/21/18 22:39 Dose: 3 units Documented by: Levetiracetam (Keppra) 250 mg PO BID [facility] Last Admin: 08/21/18 21:01 Dose: 250 mg Documented by: Metoprolol Tartrate (Lopressor) 25 mg PO DAILY [facility] Last Admin: 08/22/18 06:05 Dose: 25 mg Documented by: Ondansetron HCl (Zofran) 4 mg IV Q8H PRN PRN Reason: Nausea And Vomiting Last Admin: 08/21/18 09:30 Dose: 4 mg Documented by: Pantoprazole Sodium (Protonix) 40 mg PO DAILY [facility] Last Admin: 08/21/18 09:00 Dose: 40 mg Documented by: Exam - Vital Signs Vital signs: Vital Signs Temp Pulse Resp BP Pulse Ox 97.7 F 78 18 133/79 99 08/20/18 13:16 08/20/18 13:16 08/20/18 13:16 08/20/18 13:16 08/20/18 13:16 - Physical Exam Narrative exam: Elderly -Vincentian female lying in bed in no acute distress HEENT: NCAT, pink oral mucous membrane Neck: Supple, no venous distention CVS: S1S2 RRR with no murmur, rub or gallop Chest: Clear to auscultation Abdomen: Protuberant, soft, nontender, no organomegaly, bowel sounds are present Extremities: No edema Skin warm and dry Genitourinary: deferred Neuro: Drowsy, awakens briefly but goes back to sleep, left hemiparesis with twitching Results - Lab Results 08/20/18 13:42 08/20/18 13:42 Most recent lab results Calcium 8.6 mg/dL (8.4-10.2) 08/20/18 13:42 Assessment and Plan - Patient Problems (1) Hypotension Current Visit: Yes Status: Acute Plan to address problem: Intradialytic hypotension. Also need to exclude sepsis secondary to urinary tract infection given the urinalysis findings. I agree with holding hypotensive medications. (2) Encephalopathy Current Visit: Yes Status: Acute Plan to address problem: Transient alteration probably secondary to hypotension. Persisting alteration in mental status probably toxic encephalopathy secondary to urinary tract infection. (3) Seizure disorder Current Visit: Yes Status: Acute Plan to address problem: Secondary to cerebral vascular accident. Continue antiepileptic drugs (4) Cerebrovascular accident Current Visit: Yes Status: Acute Plan to address problem: Continue antiplatelet agents (5) ESRD (end stage renal disease) on dialysis Current Visit: Yes Status: Acute Plan to address problem: Hemodialysis on a Friday, and Friday schedule. We'll dialyze today. Limit fluid removal (6) UTI (urinary tract infection) Current Visit: Yes Status: Acute Plan to address problem: Follow-up urine culture. Continue empiric antibiotic
[2018-08-22] MEDS: HumuLIN R SUB-Q SCH ×4 (09:45→22:28)
[2018-08-22] MEDS ORDERED: APRESOLINE PO ONE (10:00)
[2018-08-22] MEDS: HEPARIN SUB-Q SCH ×2 (10:25→21:04)
--- NOTE | 2018-08-22 12:19 | Progress Note ---
Assessment and Plan Assessment and plan: 78-year-old woman who has a history of end-stage renal disease on dialysis Friday schedule, diabetes, seizures, previous CVA with right- sided deficits, status post AICD and IVC filter She presents with nonresponsiveness during dialysis, symptoms occurred 30 minutes into her treatments as though she was sent to the ER. Apparently there was no evidence of convulsion, no shaking movements, no loss of bowel function, upon arrival in the ER the patient was awake alert and verbal, she was tearful because she did not remember what happened. Past medical history also includes history of DVT and possible PE, status post IVC filter CT head postsurgical changes in the left parietal region seen, no other acute changes CXR; no acute processs Diagnosis end stage renal disease hypotension during HD htn urgency transient autonomic imbalance Acute metabolic encephalopathy Hypotension Coagulopathy UTI DM Dementia sp fall 08/20, hit her head, scalp hematoma Dementia chronic Hep C Plan cont HD per renal monitor mental status, non focal exam, concerned that she may have had Low BP during HD, hypotension now resolved now mentating at baseline, she is pleasantly demented optimize bp meds fup urine cx, cont abx optimize insulins sp fall 08/21, hit her head, CT head neg for IC pathology, scalp hematoma noted, chemical and mechanical restraints as needed -outpatient hepatology or ID fup; for hepc dvt ppx- anticoagulated History Interval history: RN reports a fall this am, she is confused and keeps getting out of bed, she fell and hit her head Review of systems Constitutional: No fevers, no malaise, no joint pains CVS: No chest pain, no orthopnea, no dyspnea on exertion, no pedal edema GI: No abdominal pain, no diarrhea, no vomiting, no constipation Respiratory: No shortness of breath, no wheezing, no coughing Hospitalist Physical - Physical exam Narrative exam: General.: Appears well, no distress, nontoxic HEENT: Moist mucous membranes, extraocular muscles intact, no lymphadenopathy Neck: supple Cardiac: S1-S2 heard Lungs: clear to auscultation bilaterally Abdomen: soft , nontender, nondistended, bowel sounds positive Extremities: no edema clubbing or cyanosis Skin: no rash or lesions Neurologic: no gross focal deficits, confused Psych: pleasantly demented - Constitutional Vitals: Temp Pulse Resp BP Pulse Ox 98.2 F 68 18 165/78 99 08/22/18 10:40 08/22/18 11:30 08/22/18 10:40 08/22/18 11:30 08/22/18 08:58 Results - Labs CBC & Chem 7: 08/20/18 13:42 08/22/18 16:55 Labs: Laboratory Last Values WBC 6.4 K/mm3 (4.5-11.0) 08/20/18 13:42 RBC 4.60 M/mm3 (3.65-5.03) 08/20/18 13:42 Hgb 12.0 gm/dl (10.1-14.3) 08/20/18 13:42 Hct 38.3 % (30.3-42.9) 08/20/18 13:42 MCV 83 fl (79-97) 08/20/18 13:42 MCH 26 pg (28-32) L 08/20/18 13:42 MCHC 31 % (30-34) 08/20/18 13:42 RDW 17.7 % (13.2-15.2) H 08/20/18 13:42 Plt Count 140 K/mm3 (140-440) 08/20/18 13:42 Lymph % (Auto) 19.2 % (13.4-35.0) 08/20/18 13:42 [place] % (Auto) 5.9 % (0.0-7.3) 08/20/18 13:42 Eos % (Auto) 1.7 % (0.0-4.3) 08/20/18 13:42 Baso % (Auto) 0.6 % (0.0-1.8) 08/20/18 13:42 Lymph # 1.2 K/mm3 (1.2-5.4) 08/20/18 13:42 Heard # 0.4 K/mm3 (0.0-0.8) 08/20/18 13:42 Eos # 0.1 K/mm3 (0.0-0.4) 08/20/18 13:42 Baso # 0.0 K/mm3 (0.0-0.1) 08/20/18 13:42 Seg Neutrophils % 72.6 % (40.0-70.0) H 08/20/18 13:42 Seg Neutrophils # 4.7 K/mm3 (1.8-7.7) 08/20/18 13:42 PT 17.0 Sec. (12.2-14.9) H 08/20/18 13:42 INR 1.30 (0.87-1.13) H 08/20/18 13:42 APTT 148.3 Sec. (24.2-36.6) H* 08/20/18 13:42 Sodium 131 mmol/L (137-145) L 08/20/18 13:42 Potassium 4.1 mmol/L (3.6-5.0) 08/20/18 13:42 Chloride 93.9 mmol/L (98-107) L 08/20/18 13:42 Carbon Dioxide 25 mmol/L (22-30) 08/20/18 13:42 Anion Gap 16 mmol/L 08/20/18 13:42 BUN 29 mg/dL (7-17) H 08/20/18 13:42 Creatinine 4.0 mg/dL (0.7-1.2) H 08/20/18 13:42 Estimated GFR 13 ml/min 08/20/18 13:42 BUN/Creatinine Ratio 7 % 08/20/18 13:42 Glucose 248 mg/dL (65-100) H 08/20/18 13:42 POC Glucose 72 (70-105) 08/22/18 07:27 Calcium 8.6 mg/dL (8.4-10.2) 08/20/18 13:42 Total Bilirubin 0.40 mg/dL (0.1-1.2) 08/20/18 13:42 AST 20 units/L (5-40) 08/20/18 13:42 ALT 7 units/L (7-56) 08/20/18 13:42 Alkaline Phosphatase 166 units/L (35-129) H 08/20/18 13:42 Troponin T 0.038 ng/mL (0.00-0.029) H 08/20/18 19:59 Total Protein 6.9 g/dL (6.3-8.2) 08/20/18 13:42 Albumin 2.9 g/dL (3.9-5) L 08/20/18 13:42 Albumin/Globulin Ratio 0.7 % 08/20/18 13:42 Triglycerides 108 mg/dL (2-149) 08/20/18 13:42 Cholesterol 228 mg/dL (50-199) H 08/20/18 13:42 LDL Cholesterol Direct 145 mg/dL (50-130) H 08/20/18 13:42 HDL Cholesterol 76 mg/dL (40-59) H 08/20/18 13:42 Cholesterol/HDL Ratio 3.00 % 08/20/18 13:42 TSH 2.930 mlU/mL (0.270-4.200) 08/20/18 13:42 Free T4 1.31 ng/dL (0.76-1.46) 08/20/18 13:42 Urine Color [place] (Yellow) 08/20/18 17:08 Urine Turbidity Cloudy (Clear) 08/20/18 17:08 Urine pH 6.0 (5.0-7.0) 08/20/18 17:08 Ur Specific [place] 1.017 (1.003-1.030) 08/20/18 17:08 Urine Protein >500 mg/dL (Negative) 08/20/18 17:08 Urine Glucose (UA) 150 mg/dL (Negative) 08/20/18 17:08 Urine Ketones Tr mg/dL (Negative) 08/20/18 17:08 Urine Blood Mod (Negative) 08/20/18 17:08 Urine Nitrite Neg (Negative) 08/20/18 17:08 Urine Bilirubin Neg (Negative) 08/20/18 17:08 Urine Urobilinogen < 2.0 mg/dL (<2.0) 08/20/18 17:08 Ur Leukocyte Esterase Lg (Negative) 08/20/18 17:08 Urine WBC (Auto) 65.0 /HPF (0.0-6.0) H 08/20/18 17:08 Urine RBC (Auto) 38.0 /HPF (0.0-6.0) 08/20/18 17:08 U Epithel Cells (Auto) 3.0 /HPF (0-13.0) 08/20/18 17:08 Ur Transition Epith Cell 1 /HPF 08/20/18 17:08 Urine Mucus Few /HPF 08/20/18 17:08 Plasma/Serum Alcohol < 0.01 % (0-0.07) 08/20/18 13:42
[2018-08-22] MEDS ORDERED: NACL 0.9 (PRIMING MACHINE ONLY DIALYSIS) MC ONE (13:47)
[2018-08-22] MEDS: ROCEPHIN/NS 1 GM/50 ML 1 GM/50 ML BAG IV SCH (14:33)
[2018-08-22] MEDS: KEPPRA PO SCH ×2 (14:34→21:03)
[2018-08-22] MEDS: CYMBALTA PO SCH (14:34)
[2018-08-22] MEDS: PROTONIX PO SCH (14:34)
[2018-08-22] MEDS: PHOSLO PO SCH ×3 (14:36→19:32)
[2018-08-22] MEDS: NORVASC PO SCH (14:36)
[2018-08-22 15:08] LABS: Hepatitis C Virus Antibody Reactive (NonReactive)
[2018-08-22] MEDS ORDERED: ATIVAN IV PRN (15:20)
[2018-08-22 17:45] LABS: INR 0.87 (0.87-1.13)
[2018-08-22 17:46] LABS: Partial Thromboplastin Time 22.4 Sec. (24.2-36.6)
[2018-08-22 17:53] LABS: Calcium 8.7 mg/dL (8.4-10.2)
[2018-08-23] MEDS: HumuLIN R SUB-Q SCH ×4 (09:43→22:56)
[2018-08-23] MEDS: PHOSLO PO SCH ×3 (09:46→17:43)
[2018-08-23] MEDS: LOPRESSOR PO SCH (09:46)
[2018-08-23] MEDS: CYMBALTA PO SCH (09:46)
[2018-08-23] MEDS: PROTONIX PO SCH (09:46)
[2018-08-23] MEDS: NORVASC PO SCH (09:47)
[2018-08-23] MEDS: KEPPRA PO SCH ×2 (09:47→22:38)
[2018-08-23] MEDS: ROCEPHIN/NS 1 GM/50 ML 1 GM/50 ML BAG IV SCH (09:48)
[2018-08-23] MEDS: HEPARIN SUB-Q SCH ×2 (09:48→22:25)
--- NOTE | 2018-08-23 14:25 | Progress Note ---
Assessment and Plan Assessment and plan: 78-year-old woman who has a history of end-stage renal disease on dialysis Friday schedule, diabetes, seizures, previous CVA with right- sided deficits, status post AICD and IVC filter She presents with nonresponsiveness during dialysis, symptoms occurred 30 minutes into her treatments as though she was sent to the ER. Apparently there was no evidence of convulsion, no shaking movements, no loss of bowel function, upon arrival in the ER the patient was awake alert and verbal, she was tearful because she did not remember what happened. Past medical history also includes history of DVT and possible PE, status post IVC filter CT head postsurgical changes in the left parietal region seen, no other acute changes CXR; no acute processs Diagnosis end stage renal disease hypotension during HD htn urgency transient autonomic imbalance Acute metabolic encephalopathy Hypotension Coagulopathy UTI DM Dementia sp fall 3, hit her head, scalp hematoma Dementia chronic Hep C Plan cont HD per renal monitor mental status, non focal exam, concerned that she may have had Low BP during HD, hypotension now resolved now mentating at baseline, she is pleasantly demented -optimize bp meds fup urine cx, cont abx optimize insulins sp fall 08/21, hit her head, CT head neg for IC pathology, scalp hematoma noted, chemical and mechanical restraints as needed -outpatient hepatology or ID fup; for hepc dvt ppx- anticoagulated History Interval history: Review of systems Constitutional: No fevers, no malaise, no joint pains CVS: No chest pain, no orthopnea, no dyspnea on exertion, no pedal edema GI: No abdominal pain, no diarrhea, no vomiting, no constipation Respiratory: No shortness of breath, no wheezing, no coughing Hospitalist Physical - Physical exam Narrative exam: General.: Appears well, no distress, nontoxic HEENT: Moist mucous membranes, extraocular muscles intact, no lymphadenopathy Neck: supple Cardiac: S1-S2 heard Lungs: clear to auscultation bilaterally Abdomen: soft , nontender, nondistended, bowel sounds positive Extremities: no edema clubbing or cyanosis Skin: no rash or lesions Neurologic: no gross focal deficits, confused Psych: pleasantly demented - Constitutional Vitals: Temp Pulse Resp BP Pulse Ox 98.0 F 64 20 152/78 99 08/23/18 12:56 08/23/18 09:25 08/23/18 12:56 08/23/18 12:56 08/23/18 09:25 Results - Labs CBC & Chem 7: 08/20/18 13:42 08/22/18 16:55 Labs: Laboratory Last Values WBC 6.4 K/mm3 (4.5-11.0) 08/20/18 13:42 RBC 4.60 M/mm3 (3.65-5.03) 08/20/18 13:42 Hgb 12.0 gm/dl (10.1-14.3) 08/20/18 13:42 Hct 38.3 % (30.3-42.9) 08/20/18 13:42 MCV 83 fl (79-97) 08/20/18 13:42 MCH 26 pg (28-32) L 08/20/18 13:42 MCHC 31 % (30-34) 08/20/18 13:42 RDW 17.7 % (13.2-15.2) H 08/20/18 13:42 Plt Count 140 K/mm3 (140-440) 08/20/18 13:42 Lymph % (Auto) 19.2 % (13.4-35.0) 08/20/18 13:42 [place] % (Auto) 5.9 % (0.0-7.3) 08/20/18 13:42 Eos % (Auto) 1.7 % (0.0-4.3) 08/20/18 13:42 Baso % (Auto) 0.6 % (0.0-1.8) 08/20/18 13:42 Lymph # 1.2 K/mm3 (1.2-5.4) 08/20/18 13:42 [place] # 0.4 K/mm3 (0.0-0.8) 08/20/18 13:42 Eos # 0.1 K/mm3 (0.0-0.4) 08/20/18 13:42 Baso # 0.0 K/mm3 (0.0-0.1) 08/20/18 13:42 Seg Neutrophils % 72.6 % (40.0-70.0) H 08/20/18 13:42 Seg Neutrophils # 4.7 K/mm3 (1.8-7.7) 08/20/18 13:42 PT 12.4 Sec. (12.2-14.9) 08/22/18 16:55 INR 0.87 (0.87-1.13) 08/22/18 16:55 APTT 22.4 Sec. (24.2-36.6) L 08/22/18 16:55 Sodium 138 mmol/L (137-145) D 08/22/18 16:55 Potassium 3.4 mmol/L (3.6-5.0) L 08/22/18 16:55 Chloride 98.6 mmol/L (98-107) 08/22/18 16:55 Carbon Dioxide 26 mmol/L (22-30) 08/22/18 16:55 Anion Gap 17 mmol/L 08/22/18 16:55 BUN 12 mg/dL (7-17) 08/22/18 16:55 Creatinine 2.8 mg/dL (0.7-1.2) H 08/22/18 16:55 Estimated GFR 20 ml/min 08/22/18 16:55 BUN/Creatinine Ratio 4 % 08/22/18 16:55 Glucose 148 mg/dL (65-100) H 08/22/18 16:55 POC Glucose 155 (70-105) H 08/23/18 11:47 Calcium 8.7 mg/dL (8.4-10.2) 08/22/18 16:55 Total Bilirubin 0.40 mg/dL (0.1-1.2) 08/20/18 13:42 AST 20 units/L (5-40) 08/20/18 13:42 ALT 7 units/L (7-56) 08/20/18 13:42 Alkaline Phosphatase 166 units/L (35-129) H 08/20/18 13:42 Total Creatine Kinase 33 units/L (30-135) 08/22/18 16:55 Troponin T 0.038 ng/mL (0.00-0.029) H 08/20/18 19:59 Total Protein 6.9 g/dL (6.3-8.2) 08/20/18 13:42 Albumin 2.9 g/dL (3.9-5) L 08/20/18 13:42 Albumin/Globulin Ratio 0.7 % 08/20/18 13:42 Triglycerides 108 mg/dL (2-149) 08/20/18 13:42 Cholesterol 228 mg/dL (50-199) H 08/20/18 13:42 LDL Cholesterol Direct 145 mg/dL (50-130) H 08/20/18 13:42 HDL Cholesterol 76 mg/dL (40-59) H 08/20/18 13:42 Cholesterol/HDL Ratio 3.00 % 08/20/18 13:42 TSH 2.930 mlU/mL (0.270-4.200) 08/20/18 13:42 Free T4 1.31 ng/dL (0.76-1.46) 08/20/18 13:42 Urine Color [place] (Yellow) 08/20/18 17:08 Urine Turbidity Cloudy (Clear) 08/20/18 17:08 Urine pH 6.0 (5.0-7.0) 08/20/18 17:08 Ur Specific [place] 1.017 (1.003-1.030) 08/20/18 17:08 Urine Protein >500 mg/dL (Negative) 08/20/18 17:08 Urine Glucose (UA) 150 mg/dL (Negative) 08/20/18 17:08 Urine Ketones Tr mg/dL (Negative) 08/20/18 17:08 Urine Blood Mod (Negative) 08/20/18 17:08 Urine Nitrite Neg (Negative) 08/20/18 17:08 Urine Bilirubin Neg (Negative) 08/20/18 17:08 Urine Urobilinogen < 2.0 mg/dL (<2.0) 08/20/18 17:08 Ur Leukocyte Esterase Lg (Negative) 08/20/18 17:08 Urine WBC (Auto) 65.0 /HPF (0.0-6.0) H 08/20/18 17:08 Urine RBC (Auto) 38.0 /HPF (0.0-6.0) 08/20/18 17:08 U Epithel Cells (Auto) 3.0 /HPF (0-13.0) 08/20/18 17:08 Ur Transition Epith Cell 1 /HPF 08/20/18 17:08 Urine Mucus Few /HPF 08/20/18 17:08 Plasma/Serum Alcohol < 0.01 % (0-0.07) 08/20/18 13:42 Hepatitis A IgM Ab Non-reactive (NonReactive) 08/22/18 11:50 Hep B Core IgM Ab Non-reactive (NonReactive) 08/22/18 11:50 Hepatitis C Antibody Reactive (NonReactive) A 08/22/18 11:50
--- NOTE | 2018-08-23 14:36 | Progress Note ---
Assessment and Plan - Patient Problems (1) Hypotension Current Visit: Yes Status: Acute Plan to address problem: Intradialytic hypotension. Also probable contribution from sepsis secondary to urinary tract infection given the urinalysis findings. Blood pressure is better and was actually high. I agree with restarting hypotensive medications (2) UTI (urinary tract infection) Current Visit: Yes Status: Acute Plan to address problem: Urine growing gram-negative rods and strep bovis. Follow-up urine culture. Continue empiric antibiotic (3) Encephalopathy Current Visit: Yes Status: Acute Plan to address problem: Transient alteration probably secondary to hypotension. Persisting alteration in mental status probably toxic encephalopathy secondary to urinary tract infection. (4) Seizure disorder Current Visit: Yes Status: Acute Plan to address problem: Secondary to cerebral vascular accident. Continue antiepileptic drugs (5) Cerebrovascular accident Current Visit: Yes Status: Acute Plan to address problem: Continue antiplatelet agents (6) ESRD (end stage renal disease) on dialysis Current Visit: Yes Status: Acute Plan to address problem: Hemodialysis on a Friday, and Friday schedule. Subjective Date of service: 08/23/18 Principal diagnosis: end-stage renal disease, urinary tract infection, encephalopathy Interval history: Patient seen lying in bed. She is more awake today. Says "I am tired all the time." Objective - Exam Narrative Exam: Elderly -Portuguese female lying in bed in no acute distress HEENT: NCAT, pink oral mucous membrane Neck: Supple, no venous distention CVS: S1S2 RRR with no murmur, rub or gallop Chest: Clear to auscultation Abdomen: Protuberant, soft, nontender, no organomegaly, bowel sounds are present Extremities: No edema Skin warm and dry Genitourinary: deferred Neuro: Drowsy, awakens briefly but goes back to sleep, left hemiparesis with twitching - Vital Signs Vital signs: Vital Signs - 12hr 08/23/18 08/23/18 08/23/18 07:56 09:25 12:56 Temperature 97.8 F 98.0 F Pulse Rate 64 Respiratory 21 20 Rate Blood Pressure 216/72 152/78 O2 Sat by Pulse 99 Oximetry - Lab 08/20/18 13:42 08/22/18 16:55 Most recent lab results Calcium 8.7 mg/dL (8.4-10.2) 08/22/18 16:55 Medications & Allergies - Medications Allergies/Adverse Reactions: Allergies No Known Allergies Allergy (Unverified 07/30/18 17:06) Home Medications: Home Medications Medication Instructions Recorded Confirmed Last Taken Type AtorvaSTATin [Lipitor] 10 mg PO QHS 08/20/18 08/20/18 Unknown History Calcium Acetate [Phoslo] 667 mg PO TID 08/20/18 08/20/18 Unknown History DULoxetine [Cymbalta] 30 mg PO DAILY 08/20/18 08/20/18 Unknown History Metoprolol Tartrate 25 mg PO DAILY 08/20/18 08/20/18 Unknown History Pantoprazole [Protonix] 40 mg PO DAILY 08/20/18 08/20/18 Unknown History amLODIPine [Norvasc] 5 mg PO BID 08/20/18 08/20/18 Unknown History levETIRAcetam [Keppra] 250 mg PO BID 08/20/18 08/20/18 Unknown History Active Medications: Generic Name Dose Route Start Last Admin Trade Name Freq PRN Reason Stop Dose Admin Acetaminophen 650 mg 08/20/18 23:05 08/21/18 09:18 Tylenol PO 650 mg Q4H PRN Administration Fever >101 Albumin Human 25 gm 08/22/18 07:44 Alburx 25% (Albumin) IV MATHEW PRN Hypotension Atorvastatin Calcium 10 mg 08/21/18 22:00 08/22/18 21:02 Lipitor PO 10 mg QHS YOLANDA Administration Calcium Acetate 667 mg 08/21/18 08:00 08/23/18 13:39 Phoslo PO 667 mg TIDWM YOLANDA Administration Dextrose 50 ml 08/20/18 23:09 D50w (25gm) Syringe IV PRN PRN Hypoglycemia Duloxetine HCl 30 mg 08/21/18 10:00 08/23/18 09:46 Cymbalta PO 30 mg DAILY YOLANDA Administration Haloperidol 0.5 mg 08/21/18 10:50 08/22/18 23:08 Haldol PO 0.5 mg Q6H PRN Administration Agitation Heparin Sodium (Porcine) 5,000 unit 08/20/18 23:15 08/23/18 09:48 Heparin SUB-Q 5,000 unit Q12HR YOLANDA Administration Heparin Sodium (Porcine) 1,000 unit 08/22/18 07:44 08/22/18 11:30 Heparin 10,000 Units/10 Ml IV 1,000 unit MATHEW PRN Administration hemodialysis Ceftriaxone Sodium 1 gm in 50 mls @ 100 mls/hr 08/21/18 10:00 08/23/18 09:48 Rocephin/Ns 1 Gm/50 Ml IV Not Given Q24HR [facility] Protocol Sodium Chloride 100 mls @ 999 mls/hr 08/22/18 11:54 Nacl 0.9% IV MATHEW PRN Hypotension Insulin Human Regular 0 units 08/21/18 07:30 08/23/18 13:39 Humulin R SUB-Q Not Given AC [facility] Protocol Insulin Human Regular 0 units 08/21/18 22:00 08/22/18 22:28 Humulin R SUB-Q Not Given QHS [facility] Protocol Levetiracetam 250 mg 08/21/18 10:00 08/23/18 09:47 Keppra PO 250 mg BID YOLANDA Administration Lorazepam 1 mg 08/22/18 15:20 Ativan IV Q4H PRN Agitation Metoprolol Tartrate 25 mg 08/21/18 10:00 08/23/18 09:46 Lopressor PO 25 mg DAILY YOLANDA Administration Nifedipine 60 mg 08/23/18 22:00 Procardia Xl PO Q12HR YOLANDA Olanzapine 5 mg 08/22/18 15:20 08/23/18 02:13 Zyprexa Zydis PO 5 mg Q6H PRN Administration Agitation Ondansetron HCl 4 mg 08/20/18 23:05 08/21/18 09:30 Zofran IV 4 mg Q8H PRN Administration Nausea And Vomiting Pantoprazole Sodium 40 mg 08/21/18 10:00 08/23/18 09:46 Protonix PO 40 mg DAILY YOLANDA Administration
[2018-08-23] MEDS: PROCARDIA XL PO SCH (22:39)
[2018-08-24] MEDS: HumuLIN R SUB-Q SCH ×2 (08:15→11:55)
[2018-08-24] MEDS: PHOSLO PO SCH ×2 (08:40→11:55)
[2018-08-24] MEDS: PROTONIX PO SCH (09:22)
[2018-08-24] MEDS: CYMBALTA PO SCH (09:22)
[2018-08-24] MEDS: PROCARDIA XL PO SCH (09:22)
[2018-08-24] MEDS: KEPPRA PO SCH (09:22)
[2018-08-24] MEDS: HEPARIN SUB-Q SCH (09:23)
[2018-08-24] MEDS: LOPRESSOR PO SCH (09:23)
[2018-08-24] MEDS: ROCEPHIN/NS 1 GM/50 ML 1 GM/50 ML BAG IV SCH (09:24)
--- NOTE | 2018-08-24 10:41 | Discharge Summary ---
Providers - Providers Date of Admission: 08/20/18 18:11 Attending physician: BEAN ARIAS MD 08/21/18 06:00 Consult to Physician [CONS] Routine Comment: spoke with doctor/milka Consulting Provider: THALIA MCFADDEN Physician Instructions: Reason For Exam: ESRD ON DIALYSIS 08/21/18 11:25 Physical Therapy Evaluation and Treat [CONS] Routine Comment: Reason For Exam: weakness [facility] Condition: Stable Hospital course: 78-year-old woman who has a history of end-stage renal disease on dialysis Friday schedule, diabetes, seizures, previous CVA with right- sided deficits, status post AICD and IVC filter She presents with nonresponsiveness during dialysis, symptoms occurred 30 minutes into her treatments as though she was sent to the ER. Apparently there was no evidence of convulsion, no shaking movements, no loss of bowel function, upon arrival in the ER the patient was awake alert and verbal, she was tearful because she did not remember what happened. Past medical history also includes history of DVT and possible PE, status post IVC filter CT head postsurgical changes in the left parietal region seen, no other acute changes CXR; no acute processs Hospital course Blood pressure medications were initially held. Her blood pressure improved, she became hypertensive again and her blood pressure meds were resumed. She was treated with antibiotics for UTI, she received nephrology consult and dialysis while in hospital She suffered a fall, but CT of her head only showed a scalp hematoma. She was watched more closely after that. The patient was in her baseline dementia mental status. She clinically improved and was discharged back home with family. Diagnosis end stage renal disease hypotension during HD htn urgency transient autonomic imbalance Acute metabolic encephalopathy Hypotension Coagulopathy UTI DM Dementia sp fall 08/20, hit her head, scalp hematoma Dementia chronic Hep C Disposition: TO HOME OR SELFCARE Time spent for discharge: 33 mins Core Measure Documentation - Palliative Care Palliative Care/ Comfort Measures: Not Applicable - Core Measures Any of the following diagnoses?: none Exam - Physical Exam Narrative exam: General.: Appears well, no distress, nontoxic HEENT: Moist mucous membranes, extraocular muscles intact, no lymphadenopathy Neck: supple Cardiac: S1-S2 heard Lungs: clear to auscultation bilaterally Abdomen: soft , nontender, nondistended, bowel sounds positive Extremities: no edema clubbing or cyanosis Skin: no rash or lesions Neurologic: no gross focal deficits, confused Psych: pleasantly demented - Constitutional Vitals: Temp Pulse Resp BP Pulse Ox 97.5 F L 108 H 18 143/103 97 08/24/18 07:18 08/24/18 09:23 08/24/18 08:52 08/24/18 09:23 08/24/18 08:52 Plan Follow up with: MARI OBRIENRED DEVIL MD CLARISSA [Primary Care Provider] - 3-5 Days Prescriptions: Ciprofloxacin HCl [Ciprofloxacin TAB] 500 mg PO DAILY #7 tablet NIFEdipine XL [Procardia Xl] 60 mg PO Q12HR #60 tablet Metoprolol Succinate [Toprol Xl] 25 mg PO DAILY #30 tab.er.24h
--- NOTE | 2018-08-24 10:51 | Progress Note ---
Hospitalist Physical - Constitutional Vitals: Temp Pulse Resp BP Pulse Ox 97.5 F L 108 H 18 143/103 97 08/24/18 07:18 08/24/18 09:23 08/24/18 08:52 08/24/18 09:23 08/24/18 08:52 Results - Labs CBC & Chem 7: 08/20/18 13:42 08/22/18 16:55 Labs: Laboratory Last Values WBC 6.4 K/mm3 (4.5-11.0) 08/20/18 13:42 RBC 4.60 M/mm3 (3.65-5.03) 08/20/18 13:42 Hgb 12.0 gm/dl (10.1-14.3) 08/20/18 13:42 Hct 38.3 % (30.3-42.9) 08/20/18 13:42 MCV 83 fl (79-97) 08/20/18 13:42 MCH 26 pg (28-32) L 08/20/18 13:42 MCHC 31 % (30-34) 08/20/18 13:42 RDW 17.7 % (13.2-15.2) H 08/20/18 13:42 Plt Count 140 K/mm3 (140-440) 08/20/18 13:42 Lymph % (Auto) 19.2 % (13.4-35.0) 08/20/18 13:42 [place] % (Auto) 5.9 % (0.0-7.3) 08/20/18 13:42 Eos % (Auto) 1.7 % (0.0-4.3) 08/20/18 13:42 Baso % (Auto) 0.6 % (0.0-1.8) 08/20/18 13:42 Lymph # 1.2 K/mm3 (1.2-5.4) 08/20/18 13:42 [place] # 0.4 K/mm3 (0.0-0.8) 08/20/18 13:42 Eos # 0.1 K/mm3 (0.0-0.4) 08/20/18 13:42 Baso # 0.0 K/mm3 (0.0-0.1) 08/20/18 13:42 Seg Neutrophils % 72.6 % (40.0-70.0) H 08/20/18 13:42 Seg Neutrophils # 4.7 K/mm3 (1.8-7.7) 08/20/18 13:42 PT 12.4 Sec. (12.2-14.9) 08/22/18 16:55 INR 0.87 (0.87-1.13) 08/22/18 16:55 APTT 22.4 Sec. (24.2-36.6) L 08/22/18 16:55 Sodium 138 mmol/L (137-145) D 08/22/18 16:55 Potassium 3.4 mmol/L (3.6-5.0) L 08/22/18 16:55 Chloride 98.6 mmol/L (98-107) 08/22/18 16:55 Carbon Dioxide 26 mmol/L (22-30) 08/22/18 16:55 Anion Gap 17 mmol/L 08/22/18 16:55 BUN 12 mg/dL (7-17) 08/22/18 16:55 Creatinine 2.8 mg/dL (0.7-1.2) H 08/22/18 16:55 Estimated GFR 20 ml/min 08/22/18 16:55 BUN/Creatinine Ratio 4 % 08/22/18 16:55 Glucose 148 mg/dL (65-100) H 08/22/18 16:55 POC Glucose 129 (70-105) H 08/24/18 08:16 Calcium 8.7 mg/dL (8.4-10.2) 08/22/18 16:55 Total Bilirubin 0.40 mg/dL (0.1-1.2) 08/20/18 13:42 AST 20 units/L (5-40) 08/20/18 13:42 ALT 7 units/L (7-56) 08/20/18 13:42 Alkaline Phosphatase 166 units/L (35-129) H 08/20/18 13:42 Total Creatine Kinase 33 units/L (30-135) 08/22/18 16:55 Troponin T 0.038 ng/mL (0.00-0.029) H 08/20/18 19:59 Total Protein 6.9 g/dL (6.3-8.2) 08/20/18 13:42 Albumin 2.9 g/dL (3.9-5) L 08/20/18 13:42 Albumin/Globulin Ratio 0.7 % 08/20/18 13:42 Triglycerides 108 mg/dL (2-149) 08/20/18 13:42 Cholesterol 228 mg/dL (50-199) H 08/20/18 13:42 LDL Cholesterol Direct 145 mg/dL (50-130) H 08/20/18 13:42 HDL Cholesterol 76 mg/dL (40-59) H 08/20/18 13:42 Cholesterol/HDL Ratio 3.00 % 08/20/18 13:42 TSH 2.930 mlU/mL (0.270-4.200) 08/20/18 13:42 Free T4 1.31 ng/dL (0.76-1.46) 08/20/18 13:42 Urine Color [place] (Yellow) 08/20/18 17:08 Urine Turbidity Cloudy (Clear) 08/20/18 17:08 Urine pH 6.0 (5.0-7.0) 08/20/18 17:08 Ur Specific [place] 1.017 (1.003-1.030) 08/20/18 17:08 Urine Protein >500 mg/dL (Negative) 08/20/18 17:08 Urine Glucose (UA) 150 mg/dL (Negative) 08/20/18 17:08 Urine Ketones Tr mg/dL (Negative) 08/20/18 17:08 Urine Blood Mod (Negative) 08/20/18 17:08 Urine Nitrite Neg (Negative) 08/20/18 17:08 Urine Bilirubin Neg (Negative) 08/20/18 17:08 Urine Urobilinogen < 2.0 mg/dL (<2.0) 08/20/18 17:08 Ur Leukocyte Esterase Lg (Negative) 08/20/18 17:08 Urine WBC (Auto) 65.0 /HPF (0.0-6.0) H 08/20/18 17:08 Urine RBC (Auto) 38.0 /HPF (0.0-6.0) 08/20/18 17:08 U Epithel Cells (Auto) 3.0 /HPF (0-13.0) 08/20/18 17:08 Ur Transition Epith Cell 1 /HPF 08/20/18 17:08 Urine Mucus Few /HPF 08/20/18 17:08 Plasma/Serum Alcohol < 0.01 % (0-0.07) 08/20/18 13:42 Hepatitis A IgM Ab Non-reactive (NonReactive) 08/22/18 11:50 Hep B Core IgM Ab Non-reactive (NonReactive) 08/22/18 11:50 Hepatitis C Antibody Reactive (NonReactive) A 08/22/18 11:50 Active Medications - Current Medications Current Medications: Generic Name Dose Route Start Last Admin Trade Name Freq PRN Reason Stop Dose Admin Acetaminophen 650 mg 08/20/18 23:05 08/21/18 09:18 Tylenol PO 650 mg Q4H PRN Administration Fever >101 Albumin Human 25 gm 08/22/18 07:44 Alburx 25% (Albumin) IV MATHEW PRN Hypotension Atorvastatin Calcium 10 mg 08/21/18 22:00 08/23/18 22:38 Lipitor PO 10 mg QHS YOLANDA Administration Calcium Acetate 667 mg 08/21/18 08:00 08/24/18 08:40 Phoslo PO 667 mg TIDWM YOLANDA Administration Dextrose 50 ml 08/20/18 23:09 D50w (25gm) Syringe IV PRN PRN Hypoglycemia Duloxetine HCl 30 mg 08/21/18 10:00 08/24/18 09:22 Cymbalta PO 30 mg DAILY YOLANDA Administration Haloperidol 0.5 mg 08/21/18 10:50 08/22/18 23:08 Haldol PO 0.5 mg Q6H PRN Administration Agitation Heparin Sodium (Porcine) 5,000 unit 08/20/18 23:15 08/24/18 09:23 Heparin SUB-Q 5,000 unit Q12HR YOLANDA Administration Heparin Sodium (Porcine) 1,000 unit 08/22/18 07:44 08/22/18 11:30 Heparin 10,000 Units/10 Ml IV 1,000 unit MATHEW PRN Administration hemodialysis Ceftriaxone Sodium 1 gm in 50 mls @ 100 mls/hr 08/21/18 10:00 08/24/18 09:24 Rocephin/Ns 1 Gm/50 Ml IV 100 mls/hr Q24HR YOLANDA Administration Protocol Sodium Chloride 100 mls @ 999 mls/hr 08/22/18 11:54 Nacl 0.9% IV MATHEW PRN Hypotension Insulin Human Regular 0 units 08/21/18 07:30 08/24/18 08:15 Humulin R SUB-Q Not Given AC YOLANDA Protocol Insulin Human Regular 0 units 08/21/18 22:00 08/23/18 22:56 Humulin R SUB-Q 1 units QHS YOLANDA Administration Protocol Levetiracetam 250 mg 08/21/18 10:00 08/24/18 09:22 Keppra PO 250 mg BID YOLANDA Administration Lorazepam 1 mg 08/22/18 15:20 Ativan IV Q4H PRN Agitation Metoprolol Tartrate 25 mg 08/21/18 10:00 08/24/18 09:23 Lopressor PO 25 mg DAILY YOLANDA Administration Nifedipine 60 mg 08/23/18 22:00 08/24/18 09:22 Procardia Xl PO 60 mg Q12HR YOLANDA Administration Olanzapine 5 mg 08/22/18 15:20 08/23/18 02:13 Zyprexa Zydis PO 5 mg Q6H PRN Administration Agitation Ondansetron HCl 4 mg 08/20/18 23:05 08/21/18 09:30 Zofran IV 4 mg Q8H PRN Administration Nausea And Vomiting Pantoprazole Sodium 40 mg 08/21/18 10:00 08/24/18 09:22 Protonix PO 40 mg DAILY YOLANDA Administration
[2018-08-24 13:24] VITALS: BP 141/64
[2018-08-28 09:19] LABS: Hepatitis B Surface Antigen Nonreactive (Negative)
== END 2018-08-24 13:16 | disposition home or self-care (01) | DRG 70 ==
LOC: ED 12:54 → 2B-ACE 18:11
PROVIDERS: ADMIT Internal Medicine; ATTEND Internal Medicine
PROC: 5A1D70Z Performance of Urinary Filtration, Intermittent, Less than 6 Hours Per Day (ICD-10-PCS; principal; 2018-08-22)
DX: G93.41 Metabolic encephalopathy (principal); N18.6 End stage renal disease; N39.0 Urinary tract infection, site not specified; D68.9 Coagulation defect, unspecified; I69.351 Hemiplegia and hemiparesis following cerebral infarction affecting right dominant side; I95.3 Hypotension of hemodialysis; G90.8 Other disorders of autonomic nervous system; E11.22 Type 2 diabetes mellitus with diabetic chronic kidney disease; F03.90 Unspecified dementia, unspecified severity, without behavioral disturbance, psychotic disturbance, mood disturbance, and anxiety; B18.2 Chronic viral hepatitis C; S00.03XA Contusion of scalp, initial encounter; G40.909 Epilepsy, unspecified, not intractable, without status epilepticus; I16.0 Hypertensive urgency; Z99.2 Dependence on renal dialysis; Z95.810 Presence of automatic (implantable) cardiac defibrillator; Z86.718 Personal history of other venous thrombosis and embolism; Y93.89 Activity, other specified; Z79.899 Other long term (current) drug therapy; Y92.89 Other specified places as the place of occurrence of the external cause; Y99.8 Other external cause status
CPT/HCPCS: 36415; 70450; 71045; 80048; 80053; 80061; 80074; 80320; 81001; 82550; 82962; 84439; 84443; 84484; 85025; 85610; 85730; 87076; 87086; 87186; 93005; 93010; G0378; A9270-GY; G0480; J0696; J1644; J1815; J2060; J2270; J2405; J7030